=== PATIENT | female | born 1935 | race Hispanic/Latino ===

== ENCOUNTER 2016-10-10 17:26 | Emergency (ER) | payer MEDICARE ==
[2016-10-10] MEDS ORDERED: DELTASONE PO ONE (19:18)
[2016-10-10] MEDS ORDERED: DUONEB 0.5 MG-3 MG/3 ML SOLN IH ONE (19:19)
--- NOTE | 2016-10-10 19:21 | Emergency Department Report ---
- General Chief Complaint: Upper Respiratory Infection Stated Complaint: COLD SYMPTOMS/ABD PAINS Time Seen by Provider: 10/10/16 19:16 Source: patient, family Mode of arrival: Ambulatory Limitations: No Limitations - History of Present Illness Initial Comments: Patient here reports that she has congestion and nonproductive cough 3 days. She reports she has sore throat and body ache with nausea. She is complaining of generalized pain. She says she has fever. All pain is 4 out of 10 and aching. She had a pneumonia shot but not flu shot because she is allergic to it. Denies any nausea vomiting. Denies Any chest pain or shortness of breath. Patient reports she is evening drinking well. She reports that she was having abdominal pain in triage but she denies any abdominal pain at present. MD Complaint: fever, cough, sore throat, nasal congestion -: days(s) Severity: mild Severity scale (0 -10): 4 Quality: aching Improves With: OTC cold medicine Worsens With: nothing Context: sick contacts Associated Symptoms: fever, chills, rhinorrhea, nasal congestion, cough. denies : myalgias, diaphoresis, headache, stiff neck, chest pain, shortness of breath, abdominal pain, nausea, vomiting, diarrhea, rash, confusion, right sweats, weight loss, epistaxis, hoarseness, ear pain, other - Related Data Home Medications Medication Instructions Recorded Confirmed Last Taken Clopidogrel Bisulfate [Plavix] 75 mg PO DAILY 01/22/16 06/16/16 10 Days Ago Esomeprazole Magnesium [NexIUM] 40 mg PO QDAY 01/22/16 06/09/16 06/14/16 LORazepam [Ativan] 1 mg PO DAILY 01/22/16 06/16/16 06/15/16 Losartan [Cozaar] 100 mg PO QDAY 01/22/16 06/09/16 06/14/16 Metoprolol Xl [Metoprolol 50 mg PO QDAY 01/22/16 06/09/16 06/14/16 SUCCINATE ER TAB] Pantoprazole [Protonix TAB] 20 mg PO QDAY 01/22/16 06/09/16 06/14/16 cloNIDine [Catapres] 0.1 mg PO DAILY 01/22/16 06/09/16 06/14/16 Amlodipine Besylate [Amlodipine 2.5 mg PO QDAY 06/09/16 06/09/16 06/14/16 Besylate] Previous Rx's Medication Instructions Recorded Last Taken Type Clopidogrel [Plavix] 75 mg PO QDAY #30 tablet 06/17/16 Unknown Rx HYDROcodone/APAP 5-325 [Waterfall 1 - 2 each PO Q6HR PRN #60 tablet 06/17/16 Unknown Rx 5/325] traMADol [Ultram] 50 mg PO Q6HR PRN #14 tablet 07/04/16 Unknown Rx ALBUTEROL Inhaler [ProAir HFA 2 puff IH QID PRN #1 inhalation 10/10/16 Unknown Rx Inhaler] ALBUTEROL NEB's [Proventil 0.083% 2.5 mg IH Q4-6H PRN #1 box 10/10/16 Unknown Rx NEBS] Benzonatate [Tessalon Perles] 100 mg PO Q8HR PRN #15 capsule 10/10/16 Unknown Rx Clarithromycin [Biaxin] 500 mg PO BID #20 tab 10/10/16 Unknown Rx predniSONE [Deltasone] 20 mg PO QAM #5 tab 10/10/16 Unknown Rx Allergies Allergy/AdvReac Type Severity Reaction Status Date / Time ciprofloxacin [From Cipro] Allergy Rash Verified 06/13/16 11:14 ciprofloxacin HCl Allergy Rash Verified 06/13/16 11:14 [From Cipro] codeine Allergy Unknown Verified 06/13/16 11:14 Influenza Virus Vaccines Allergy Hives Verified 06/17/16 05:01 latex Allergy Rash Verified 06/13/16 11:14 morphine Allergy Unknown Verified 06/13/16 11:14 Penicillins Allergy Rash Verified 06/13/16 11:14 sulfamethoxazole AdvReac Unknown Verified 06/17/16 05:01 [From Bactrim] trimethoprim [From Bactrim] AdvReac Unknown Verified 06/17/16 05:01 ED Review of Systems ROS: Stated complaint: COLD SYMPTOMS/ABD PAINS Other details as noted in HPI Comment: All other systems reviewed and negative Constitutional: chills, fever, malaise ENT: throat pain, congestion. denies: ear pain Respiratory: cough. denies: orthopnea, shortness of breath, SOB with exertion, SOB at rest, stridor, wheezing Cardiovascular: denies: chest pain, palpitations, edema, syncope Gastrointestinal: denies: nausea, vomiting, diarrhea, constipation Musculoskeletal: denies: back pain, arthralgia, myalgia Skin: denies: rash Neurological: denies: headache, numbness, paresthesias, confusion ED Past Medical Hx - Past Medical History Previous Medical History?: Yes Hx Hypertension: Yes Hx Heart Attack/AMI: Yes Hx Congestive Heart Failure: No Hx Deep Vein Thrombosis: No Hx GERD: Yes Hx Arthritis: Yes Hx Headaches / Migraines: Yes Hx COPD: Yes Additional medical history: brain aneurysm - Surgical History Past Surgical History?: Yes Hx Coronary Stent: No Hx Open Heart Surgery: Yes (CABG) Hx Pacemaker: No Hx Internal Defibrillator: No Additional Surgical History: brain aneurysm repair. lung surgery - Family History Family history: CAD/[place], hypertension - Social History Smoking Status: Former Smoker Substance Use Type: None - Medications Home Medications: Home Medications Medication Instructions Recorded Confirmed Last Taken Type Clopidogrel Bisulfate [Plavix] 75 mg PO DAILY 01/22/16 06/16/16 10 Days Ago History Esomeprazole Magnesium [NexIUM] 40 mg PO QDAY 01/22/16 06/09/16 06/14/16 History LORazepam [Ativan] 1 mg PO DAILY 01/22/16 06/16/16 06/15/16 History Losartan [Cozaar] 100 mg PO QDAY 01/22/16 06/09/16 06/14/16 History Metoprolol Xl [Metoprolol 50 mg PO QDAY 01/22/16 06/09/16 06/14/16 History SUCCINATE ER TAB] Pantoprazole [Protonix TAB] 20 mg PO QDAY 01/22/16 06/09/16 06/14/16 History cloNIDine [Catapres] 0.1 mg PO DAILY 01/22/16 06/09/16 06/14/16 History Amlodipine Besylate [Amlodipine 2.5 mg PO QDAY 06/09/16 06/09/16 06/14/16 History Besylate] Clopidogrel [Plavix] 75 mg PO QDAY #30 tablet 06/17/16 Unknown Rx HYDROcodone/APAP 5-325 [Waterfall 1 - 2 each PO Q6HR PRN #60 tablet 06/17/16 Unknown Rx 5/325] traMADol [Ultram] 50 mg PO Q6HR PRN #14 tablet 07/04/16 Unknown Rx ALBUTEROL Inhaler [ProAir HFA 2 puff IH QID PRN #1 inhalation 10/10/16 Unknown Rx Inhaler] ALBUTEROL NEB's [Proventil 0.083% 2.5 mg IH Q4-6H PRN #1 box 10/10/16 Unknown Rx NEBS] Benzonatate [Tessalon Perles] 100 mg PO Q8HR PRN #15 capsule 10/10/16 Unknown Rx Clarithromycin [Biaxin] 500 mg PO BID #20 tab 10/10/16 Unknown Rx predniSONE [Deltasone] 20 mg PO QAM #5 tab 10/10/16 Unknown Rx ED Physical Exam - General Limitations: No Limitations General appearance: alert, in no apparent distress - Head Head exam: Present: atraumatic, normocephalic, normal inspection - Eye Eye exam: Present: PERRL, EOMI. Absent: nystagmus, periorbital swelling, periorbital tenderness Pupils: Present: normal accommodation - ENT ENT exam: Present: normal exam, normal orophraynx, mucous membranes moist, TM's normal bilaterally, normal external ear exam, other (nasal mucosa congested with clear drainage) - Neck Neck exam: Present: normal inspection, full ROM. Absent: tenderness, meningismus, lymphadenopathy - Respiratory Respiratory exam: Present: wheezes, rhonchi, decreased breath sounds, other ( congested cough). Absent: respiratory distress, stridor, chest wall tenderness , accessory muscle use, prolonged expiratory - Cardiovascular Cardiovascular Exam: Present: regular rate, normal rhythm, normal heart sounds - GI/Abdominal GI/Abdominal exam: Present: soft, normal bowel sounds. Absent: distended, tenderness, guarding, rebound, rigid - Extremities Exam Extremities exam: Present: normal inspection, full ROM, normal capillary refill. Absent: tenderness, pedal edema, joint swelling, calf tenderness - Back Exam Back exam: Present: normal inspection, full ROM. Absent: tenderness, CVA tenderness (R), CVA tenderness (L), muscle spasm, paraspinal tenderness, vertebral tenderness, rash noted - Neurological Exam Neurological exam: Present: alert, oriented X3, normal gait, reflexes normal. Absent: motor sensory deficit - Psychiatric Psychiatric exam: Present: normal affect, normal mood - Skin Skin exam: Present: warm, dry, intact, normal color. Absent: rash ED Course Vital Signs 01/13/17 17:32 Temperature 99.5 F Pulse Rate 98 H Respiratory 20 Rate Blood Pressure 145/75 O2 Sat by Pulse 96 Oximetry - Reevaluation(s) Reevaluation #1: 10/10/16 20:35 History received Deltasone 60 mg by mouth and DuoNeb 1 nebulizer emergency room. ED Medical Decision Making - Lab Data Influenza A/B negative - Radiology Data Radiology results: report reviewed Chest x-ray revealed no acute findings. - Medical Decision Making He course: She received DuoNeb times one nebulizing emergency room along with Deltasone 60 mg by mouth. Reevaluation of her lungs, she sounds clear but diminished air entry throughout due to COPD. I discussed with patient her flu test and chest x-ray results. She has exacerbation of her COPD and I'll place her on antibiotic due to multiple comorbidities. She voiced understanding of discharge instruction and discharged home with her family with prescription for prednisone, albuterol and Augmentin. Critical care attestation.: If time is entered above; I have spent that time in minutes in the direct care of this critically ill patient, excluding procedure time. ED Disposition Clinical Impression: COPD exacerbation, Cough Disposition: DISCHARGED TO HOME OR SELFCARE Is pt being admited?: No Does the pt Need Aspirin: No Condition: Stable Instructions: Chronic Obstructive Pulmonary Disease (ED), Acute Cough (ED) Additional Instructions: Please take medication as prescribed. Take cough medicine only at bedtime as this can cause drowsiness please do not drive or operate any heavy machinery Primary care physician on 10/13/2016. Increase her fluid intake. Deep breathing and coughing exercises every 3 hours. Prescriptions: Clarithromycin [Biaxin] 500 mg PO BID #20 tab predniSONE [Deltasone] 20 mg PO QAM #5 tab ALBUTEROL Inhaler [ProAir HFA Inhaler] 2 puff IH QID PRN #1 inhalation PRN Reason: Cough/wheeze ALBUTEROL NEB's [Proventil 0.083% NEBS] 2.5 mg IH Q4-6H PRN #1 box PRN Reason: Coughing and wheezing Benzonatate [Tessalon Perles] 100 mg PO Q8HR PRN #15 capsule PRN Reason: Cough Referrals: DARYL URENA MD [Primary Care Provider] - 10/13/16 Forms: Accompanied Note, Work/School Release Form(ED)
--- NOTE | 2016-10-10 19:57 | XRay Report ---
FINAL REPORT EXAM: XR CHEST ROUTINE 2V HISTORY: cough, fever TECHNIQUE: Chest two views PRIORS: None. FINDINGS: Small to moderate hiatal hernia is noted. No focal pulmonary infiltrate identified. No pleural fluid collection seen. Pulmonary vasculature is unremarkable. Sternotomy was wires are present with mediastinal surgical clips. There are surgical clips within the left upper lobe. IMPRESSION: Hiatal hernia Postoperative changes as noted No acute pulmonary findings
[2016-10-10 21:05] VITALS: BP 140/72
== END 2016-10-10 21:05 | disposition home or self-care (01) ==
LOC: ED 17:26
DX: J44.1 Chronic obstructive pulmonary disease with (acute) exacerbation (principal); I10 Essential (primary) hypertension; I25.2 Old myocardial infarction; K21.9 Gastro-esophageal reflux disease without esophagitis; M19.90 Unspecified osteoarthritis, unspecified site; G43.909 Migraine, unspecified, not intractable, without status migrainosus; Z88.0 Allergy status to penicillin; Z88.1 Allergy status to other antibiotic agents; Z88.6 Allergy status to analgesic agent; Z88.8 Allergy status to other drugs, medicaments and biological substances; Z91.040 Latex allergy status; Z87.891 Personal history of nicotine dependence
CPT/HCPCS: 71020; 87400; 94640; 99283; J7512